=== PATIENT | female | born 1965 | race Caucasian/White ===

== ENCOUNTER 2016-10-03 08:40 | Emergency (ER) | payer OTHER ==
[2016-10-03 08:49] VITALS: BP 139/80; PULSE 73; TEMP 98; BMI 30.4
[2016-10-03] MEDS ORDERED: KETOROLAC TROMETHAMINE 60 MG/2 ML VIAL IM ONE (09:08)
[2016-10-03] MEDS ORDERED: diazePAM 5 MG TABLET PO ONE (09:08)
[2016-10-03] MEDS ORDERED: diazePAM 5 MG TABLET ONE (09:15)
[2016-10-03] MEDS ORDERED: KETOROLAC TROMETHAMINE 60 MG/2 ML VIAL ONE (09:15)
--- NOTE | 2016-10-03 09:15 | PDOC ---
History of Present Illness - General Chief Complaint: Head/Neck problem Stated Complaint: RT SIDE (ARM,NECK,SHOULDER FINGERS) Time Seen by Provider: 10/03/16 08:59 History Source: Patient Exam Limitations: No Limitations - History of Present Illness Initial Comments: 10/03/16 11:45 51 yr female history of high cholesterol presents with one week pain to neck radiates to right shoulder and arm. 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 Pt denies fever or headache, pain is worsened with movement of right arm, using the mouse and has pain turning her neck. Associated Symptoms: reports: denies symptoms Past History - Past Medical History Allergies/Adverse Reactions: Allergies Allergy/AdvReac Type Severity Reaction Status Date / Time No Known Drug Allergies Allergy Verified 10/03/16 08:44 Home Medications: Ambulatory Orders Simvastatin [Zocor -] 20 mg PO HS 11/18/13 Metronidazole [Metrogel] 60 gm TP HS #30 gel..gram. 12/03/13 Diazepam [Valium] 5 mg PO Q8H PRN #10 tablet MDD 15mg 10/03/16 Methylprednisolone [Medrol Dose Iglesia] 4 mg PO ASDIR #21 tablet 10/03/16 Anemia: No Asthma: No Cancer: No Cardiac Disorders: No CVA: No COPD: No CHF: No Dementia: No Diabetes: No GI Disorders: No Disorders: No HTN: No Hypercholesterolemia: Yes Liver Disease: No Seizures: No Thyroid Disease: No - Surgical History Abdominal Surgery: No Appendectomy: No Cardiac Surgery: No Cholecystectomy: No Lung Surgery: No Neurologic Surgery: No Orthopedic Surgery: No - Psycho/Social/Smoking Cessation Hx Suicidal Ideation: No Smoking Status: Yes Smoking History: Current every day smoker Have you smoked in the past 12 months: Yes Number of Cigarettes Smoked Daily: 2 Information on smoking cessation initiated: No 'Breaking Loose' booklet given: 12/03/13 Hx Alcohol Use: No Drug/Substance Use Hx: No Substance Use Type: None Hx Substance Use Treatment: No Review of Systems - Review of Systems Able to Perform ROS?: Yes Is the patient limited [place] proficient: No Constitutional: No: Symptoms Reported HEENTM: No: Symptoms Reported Respiratory: No: Symptoms reported Cardiac (ROS): No: Symptoms Reported ABD/GI: No: Symptoms Reported : No: Symptoms Reported Musculoskeletal: Yes: See HPI *Physical Exam - Vital Signs Last Vital Signs Temp Pulse Resp BP Pulse Ox 98 F 73 19 139/80 98 10/03/16 08:45 10/03/16 08:45 10/03/16 08:45 10/03/16 08:45 10/03/16 08:45 - Physical Exam General Appearance: Yes: Nourished, Appropriately Dressed HEENT: positive: EOMI, REINA, Normal ENT Inspection, TMs Normal, Pharynx Normal Neck: positive: Supple, Tender lateral (right side, muscle spasm ). negative: Tender, Lymphadenopathy (R), Lymphadenopathy (L), Tender midline Respiratory/Chest: positive: Lungs Clear, Normal Breath Sounds Cardiovascular: positive: Regular Rhythm, Regular Rate Musculoskeletal: positive: Normal Inspection, Muscle Spasm (left neck ). negative: CVA Tenderness, CVA Tenderness (R) Extremity: positive: Normal Capillary Refill, Normal Inspection, Normal Range of Motion Integumentary: positive: Normal Color, Dry, Warm Neurologic: positive: Fully Oriented, Alert, Normal Mood/Affect, Normal Response , Motor Strength 5/5 Medical Decision Making - Medical Decision Making 10/03/16 11:47 cc: neck spasm, pain radiating to right arm causing numbness and pain worse with movement and using the arm will give toradol dc on valium and medrol dose pack all questions asked and answered before discharge *DC/Admit/Observation/Transfer Diagnosis at time of Disposition: Cervical myofascial strain Qualifiers: Encounter type: initial encounter Qualified Code(s): S16.1XXA - Strain of muscle, fascia and tendon at neck level, initial encounter - Prescriptions Prescriptions: Methylprednisolone [Medrol Dose Iglesia] 4 mg PO ASDIR #21 tablet Diazepam [Valium] 5 mg PO Q8H PRN #10 tablet MDD 15mg PRN Reason: Muscle Spasms - Referrals Referrals: Mario Concepcion MD [Primary Care Provider] - Zach Castillo MD [Staff Physician] - - Patient Instructions Additional Instructions: apply ice to your neck every 2hrs for 20 minutes for the next 12hours take the medrol dose pack as directed, 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 Castillo for follow up if not improving avoid using your right hand to use the mouse, typing and texting as this can make symptoms worse, while you are having pain
== END 2016-10-03 09:23 | disposition home or self-care (01) ==
LOC: JERFT 08:40
PROC: 3E0233Z Introduction of Anti-inflammatory into Muscle, Percutaneous Approach (ICD-10-PCS; principal; 2016-10-03)
DX: S16.1XXA Strain of muscle, fascia and tendon at neck level, initial encounter (principal); X50.3XXA Overexertion from repetitive movements, initial encounter; Y93.C1 Activity, computer keyboarding; Y92.59 Other trade areas as the place of occurrence of the external cause; Y99.0 Civilian activity done for income or pay
CPT/HCPCS: 99281-25

== ENCOUNTER 2019-02-16 10:15 | Emergency (ER) | payer BC | END 2019-02-16 11:24 | disposition home or self-care (01) | LOC: JERFT 10:15 ==